=== PATIENT | female | born 1965 | race Caucasian/White ===

== ENCOUNTER 2020-03-17 16:57 | Emergency (ER) | payer OTHER, SELFPAY ==
--- NOTE | ~2020-03-17 | XR_ITS ---
EXAMINATION: XR knee LT min 4V DATE: 03/17/2020 17:38 INDICATION: Medial left knee pain. TECHNIQUE: Anteroposterior, 2 oblique and crosstable lateral views of the left knee were obtained COMPARISON: None. FINDINGS: Alignment is normal. No fracture. Spaces appear normal on nonweightbearing imaging. Tiny enthesophyt e along the proximal patella. No joint effusion/layering lipohemarthrosis. Soft tissues are unremarka ble. IMPRESSION: 1. No left knee joint effusion or acute osseous abnormality. Reviewed, dictated and finalized at location [facility]. [facility]
[2020-03-17 17:10] VITALS: BP 154/93; PULSE 110; RESP 18; TEMP 37.1; O2SAT 97
[2020-03-17 17:12] VITALS: BP 154/93; PULSE 110; RESP 18; TEMP 37.1; O2SAT 97
--- NOTE | 2020-03-17 17:18 | ED.GENADULT ---
HPI - General Adult General Chief complaint: Extremity Injury, Lower Stated complaint: left leg pain Time Seen by Provider: 03/17/20 17:18 Source: patient Mode of arrival: ambulatory Limitations: no limitations History of Present Illness HPI narrative: 55-year-old female patient presents to the [facility] with complaints of left knee pain. Patient states on February 11 she was dancing and states that the next day she had a lot of soreness and pain to the left knee. Patient states that since then and has continued to hurt and swell. Patient states she was seen at an urgent care and [place] and states they recommended that she get a brace. Patient states she has been wearing a brace but feels like he is not getting any better. Patient states she did take some ibuprofen when the pain and swelling for started but has not taken any recently. Patient states she is unable to take Tylenol due to her history of hep C. Patient denies any numbness or tingling down the leg. Patient states she feels like when she walks that her knee is very unstable. Patient states that the brace has been helping at times. Related Data Allergies Allergy/AdvReac Type Severity Reaction Status Date / Time codeine AdvReac Intermediate Agitated Verified 03/17/20 17:12 Review of Systems Review of Systems: Narrative: CONSTITUTIONAL: Denies fever, chills, or sweats. EYES: Denies visual changes, redness, or discharge. ENT: Denies rhinorrhea, congestion, sore throat, or otalgia. CARDIOVASCULAR: Denies chest pain, palpitations, or edema. RESPIRATORY: Denies cough or dyspnea. GASTROINTESTINAL: Denies abdominal pain, nausea, vomiting, or diarrhea. GENITOURINARY: Denies dysuria or hematuria. SKIN: Denies rash or itching. MUSCULOSKELETAL: Denies back pain, joint pain, or myalgia. Positive left knee pain NEUROLOGIC: Denies headache, numbness, or weakness. PSYCHIATRIC: Denies anxiety or depression. COUNT INCLUDES THE [facility] Past Medical History Medical History (Updated 03/17/20 @ 17:57 by ASHLEE Mendez) A-fib GERD (gastroesophageal reflux disease) Hepatitis C Hypothyroidism Tubal ligation evaluation Surgical History Surgical History (Updated 03/17/20 @ 17:22 by ASHLEE Mendez) History of carpal tunnel release Hx of cholecystectomy Hx of tonsillectomy Social History Social History Gender identity (if verbalized by the patient): Female Comments At the time of my signature I agree with nursing past medical history, surgical, social, and family history. There is no relevant family history pertinent to the presenting complaint. Exam Narrative: Exam Narrative: GENERAL: Well-appearing, well-nourished, and in no acute distress. HEAD: Normocephalic, atraumatic. EYES: PERRLA and EOMI. ENT: Nares clear, no rhinorrhea or epistaxis. Mucous membranes moist. NECK: Supple. No lymphadenopathy CHEST: Clear to auscultation. No respiratory distress. HEART: Regular rate and rhythm. No murmur heard. Normal peripheral pulses. ABDOMEN: Soft, nontender, nondistended, normal active bowel sounds. EXTREMITIES: Patient is able to bear weight and ambulate but has pain to the left knee. No surface trauma, STS, or obvious effusion. No overlying erythema or warmth. The L knee is without obvious asymmetry or deformity when compared to the R knee. Patient is able to do deep knee bend with symmetry, fully extend knee, pain with internal and external rotation. No tendernss to palpation of the patella, no effusion or ballottement. No tenderness over the infrapatellar tendon. tenderness over the medial, no pain over the medial or lateral tibial plateaus. no tenderness over the proximal fibular head. no tenderness, fullness, or mass of the popliteal fossa. No quadriceps tenderness. No laxity of the ACL, PCL, MCL, or LCL. Pain noted over the MCL on palpation. No collateral ligament laxity to valgus or vargus stress. Negative brianna/drawer sign.
== END 2020-03-17 18:02 | disposition home or self-care (01) ==
PROVIDERS: Emergency Provider Nurse Practitioner Family; PCP Internal Medicine
DX: M23.92 Unspecified internal derangement of left knee (principal); I48.91 Unspecified atrial fibrillation; K21.9 Gastro-esophageal reflux disease without esophagitis; E03.9 Hypothyroidism, unspecified; Z86.19 Personal history of other infectious and parasitic diseases
CPT/HCPCS: 73564; 99203; G0463